=== PATIENT | female | born 1975 | race Caucasian/White ===

== ENCOUNTER 2021-04-20 09:48 | Day surgery (SDC) | payer OTHER ==
[2021-04-20] MEDS ORDERED: BUPIVACAINE 0.5% VIAL IJ ONE (09:49)
[2021-04-20] MEDS ORDERED: Depo-Medrol 40 MG/ML IM ONE (09:49)
[2021-04-20] MEDS ORDERED: DIPRIVAN 200 MG/20 ML IV ONE (11:17)
[2021-04-20] MEDS ORDERED: Lactated Ringers 1,000 ML IV ONE (13:13)
--- NOTE | 2021-04-20 13:21 | XRAY ---
Indication: Right hip and greater trochanter bursa injections. Intraoperative fluoroscopy provided for 19 seconds. 2 digital spot image submitted for interpretation demonstrates needle tip projecting lateral to the right femur neck. Second needle tip lateral to the greater trochanter. Small amount of contrast injected for both needle tip placement. Correlate with intraoperative findings/report.
--- NOTE | 2021-04-20 13:46 | XRAY ---
19 seconds fluoroscopy time in surgery for injections of the greater trochanter and intra-articular joint space of the right hip.
== END 2021-04-20 11:45 | disposition home or self-care (01) ==
LOC: SDC-PAIN 09:48
PROVIDERS: ATTEND Psychiatry & Neurology Pain Medicine
DX: M16.11 Unilateral primary osteoarthritis, right hip (principal); M79.18 Myalgia, other site; Z79.899 Other long term (current) drug therapy
CPT/HCPCS: 20610; 73502; 77002; J1030; J2704; Q9966

== ENCOUNTER 2021-12-21 11:02 | Day surgery (SDC) | payer OTHER ==
[2021-12-21] MEDS ORDERED: Marcaine Mpf 0.5% Vial 30 Ml IJ ONE (11:03)
[2021-12-21] MEDS ORDERED: Depo-Medrol 40 MG/ML IM ONE (11:03)
[2021-12-21] MEDS ORDERED: Lactated Ringers 1,000 ML IV ONE (12:29)
[2021-12-21] MEDS ORDERED: DIPRIVAN 200 MG/20 ML IV ONE (13:14)
--- NOTE | 2021-12-21 19:20 | XRAY ---
Indication: Bilateral SI joint injection. Intraoperative fluoroscopy provided for 25 seconds. 4 digital spot image submitted for interpretation demonstrates posterior needle tip projecting over the left and right SI joint. Correlate with intraoperative findings/report.
--- NOTE | 2021-12-21 19:34 | XRAY ---
25 seconds of fluoroscopy was used in surgery for a bilateral sacroiliac joint injection.
== END 2021-12-21 13:38 | disposition home or self-care (01) ==
LOC: SDC-PAIN 11:02
PROVIDERS: ATTEND Psychiatry & Neurology Pain Medicine
DX: M46.1 Sacroiliitis, not elsewhere classified (principal); Z79.899 Other long term (current) drug therapy
CPT/HCPCS: 01992; 27096; 72202; 77002; G0260; J1030; J2704

== ENCOUNTER 2023-01-24 12:13 | Day surgery (SDC) | payer OTHER ==
[2023-01-24] MEDS ORDERED: BUPIVACAINE 0.5% VIAL IJ ONE (12:14)
[2023-01-24] MEDS ORDERED: LIDOCAINE HCL 1% 50 MG/5 ML VL PF IV ONE (12:14)
[2023-01-24] MEDS ORDERED: Depo-Medrol 40 MG/ML IM ONE (12:14)
[2023-01-24] MEDS ORDERED: Lactated Ringers 1,000 ML IV ONE (14:13)
[2023-01-24] MEDS ORDERED: Versed 2 MG/2 ML Injection ONE (14:33)
[2023-01-24] MEDS ORDERED: DIPRIVAN 200 MG/20 ML IV ONE (14:33)
--- NOTE | 2023-01-24 15:17 | XRAY ---
Indication: Right L4-S1 RFA. Intraoperative fluoroscopy provided for 17 seconds. 3 digital spot images submitted for interpretation demonstrates posterior needle tips projecting over the expected right L4-S1 nerve roots. Correlate with intraoperative findings/report.
--- NOTE | 2023-01-24 16:47 | XRAY ---
17 seconds of fluoroscopy was used in surgery for a right L4-S1 RFA.
== END 2023-01-24 15:06 | disposition home or self-care (01) ==
LOC: SDC-PAIN 12:13
PROVIDERS: ATTEND Psychiatry & Neurology Pain Medicine
DX: M47.816 Spondylosis without myelopathy or radiculopathy, lumbar region (principal); Z79.899 Other long term (current) drug therapy
CPT/HCPCS: 64635; 64636; 72100; 77002; J1030; J2001; J2250; J2704

== ENCOUNTER → 2023-03-14 | Day surgery (SDC) | payer OTHER ==
[~2023-03-14] MED LIST: BUPIVACAINE 0.5% VIAL IJ ONE; DIPRIVAN 200 MG/20 ML IV ONE; Depo-Medrol 40 MG/ML IM ONE; Lactated Ringers 1,000 ML IV ONE; XYLOCAINE-MPF 1% 5ML SDV IJ ONE; Xylocaine-Mpf 2% 5 Ml Vial ONE
--- NOTE | 2023-03-14 12:13 | XRAY ---
Indication: Left L4-S1 RFA. Intraoperative fluoroscopy provided for 37 seconds. 7 digital spot image submitted for interpretation demonstrates posterior needle tips projecting over expected left L4-S1 nerve roots. Correlate with intraoperative findings/report.
--- NOTE | 2023-03-14 12:21 | XRAY ---
37 seconds of fluoroscopy was used in surgery for a left L4-S1 RFA.
== END ==
LOC: SDC-PAIN 10:08
PROVIDERS: ATTEND Psychiatry & Neurology Pain Medicine
DX: M47.817 Spondylosis without myelopathy or radiculopathy, lumbosacral region (principal); Z79.899 Other long term (current) drug therapy
CPT/HCPCS: 64635; 64636; 72100; 77002; J1030; J2704

== ENCOUNTER 2023-04-18 10:45 | Day surgery (SDC) | payer OTHER ==
[2023-04-18] MEDS ORDERED: Depo-Medrol 40 MG/ML IM ONE (10:46)
[2023-04-18] MEDS ORDERED: BUPIVACAINE 0.5% VIAL IJ ONE (10:46)
[2023-04-18] MEDS ORDERED: DIPRIVAN 200 MG/20 ML IV ONE (14:12)
[2023-04-18] MEDS ORDERED: Lactated Ringers 1,000 ML IV ONE (14:24)
--- NOTE | 2023-04-18 15:01 | XRAY ---
Indication: Right hip and greater trochanter bursa injection. Intraoperative fluoroscopy provided for 20 seconds. 3 digital spot image submitted for interpretation demonstrates needle tip projecting lateral to right femur neck. Second needle tip lateral to greater trochanter. Small amount of contrast injected for both needle tip placement.. Correlate with intraoperative findings/report.
--- NOTE | 2023-04-18 15:07 | XRAY ---
20 seconds of fluoroscopy was used in surgery for a right intra-articular hip and greater trochanteric bursa injection.
== END 2023-04-18 14:45 | disposition home or self-care (01) ==
LOC: SDC-PAIN 10:45
PROVIDERS: ATTEND Psychiatry & Neurology Pain Medicine
DX: M16.11 Unilateral primary osteoarthritis, right hip (principal); M70.61 Trochanteric bursitis, right hip
CPT/HCPCS: 20610; 73502; 77002; J1030; J2704; Q9966

== ENCOUNTER 2023-08-08 11:32 | Day surgery (SDC) | payer OTHER ==
[2023-08-08] MEDS ORDERED: Sodium Chloride 0.9(Preservative Free) 10 ML IJ ONE (11:33)
[2023-08-08] MEDS ORDERED: Decadron 4 MG INJ IV ONE (11:33)
[2023-08-08] MEDS ORDERED: DIPRIVAN 200 MG/20 ML IV ONE (13:03)
[2023-08-08] MEDS ORDERED: Lactated Ringers 1,000 ML IV ONE (13:14)
[2023-08-08] MEDS ORDERED: MORPHINE SULFATE 2 MG INJ ONE ×2 (13:23→13:54)
--- NOTE | 2023-08-08 15:05 | XRAY ---
Indication: Right L4-S1 transforaminal RONNIE. Intraoperative fluoroscopy provided for 23 seconds. 5 digital spot image submitted for interpretation demonstrates posterior needle tips projecting over the expected right L4 and L5 nerve roots. Small amount of contrast injected for needle tip placement. Correlate with intraoperative findings/report.
--- NOTE | 2023-08-08 17:10 | XRAY ---
23 seconds of fluoroscopy was used in surgery for a right L4-S1 transforaminal RONNIE.
== END 2023-08-08 13:10 | disposition home or self-care (01) ==
LOC: SDC-PAIN 11:32
PROVIDERS: ATTEND Psychiatry & Neurology Pain Medicine
DX: M54.16 Radiculopathy, lumbar region (principal)
CPT/HCPCS: 64483; 64484; 72100; 77003; J1100; J2270; J2704; Q9966

== ENCOUNTER 2024-06-05 06:58 | Day surgery (SDC) | payer OTHER ==
[2024-06-05] MEDS ORDERED: LIDOCAINE HCL 1% 50 MG/5 ML VL IJ ONE (06:59)
[2024-06-05] MEDS ORDERED: BUPIVACAINE 0.5% VIAL IJ ONE (06:59)
[2024-06-05] MEDS ORDERED: LIDOCAINE HCL 2% 100 MG/5 ML IJ ONE (06:59)
[2024-06-05] MEDS ORDERED: methylPREDNISolone acetate IM ONE (06:59)
[2024-06-05] MEDS ORDERED: Lactated Ringers 500 ML IV ONE (07:11)
[2024-06-05] MEDS ORDERED: propofoL IV ONE (07:58)
--- NOTE | 2024-06-05 11:51 | XRAY ---
Indication: Right L4-S1 RFA. Intraoperative fluoroscopy provided for 19 seconds. 4 digital spot images submitted for interpretation demonstrates posterior needle tips projecting over expected right L4-S1 nerve roots. Correlate with intraoperative findings/report.
--- NOTE | 2024-06-05 12:45 | XRAY ---
19 seconds of fluoroscopy was used in surgery for a right L4-S1 RFA.
== END 2024-06-05 08:55 | disposition home or self-care (01) ==
LOC: SDC-PAIN 06:58
PROVIDERS: ATTEND Psychiatry & Neurology Pain Medicine
DX: M47.816 Spondylosis without myelopathy or radiculopathy, lumbar region (principal)
CPT/HCPCS: 64635; 64636; 72100; 77002; J1010; J2704

== ENCOUNTER 2024-07-30 10:24 | Day surgery (SDC) | payer OTHER ==
[2024-07-30] MEDS ORDERED: methylPREDNISolone acetate IM ONE (10:25)
[2024-07-30] MEDS ORDERED: LIDOCAINE HCL 1% 50 MG/5 ML VL IJ ONE (10:25)
[2024-07-30] MEDS ORDERED: BUPIVACAINE 0.5% VIAL IJ ONE (10:25)
[2024-07-30] MEDS ORDERED: propofoL IV ONE (13:20)
[2024-07-30] MEDS ORDERED: Lactated Ringers 1,000 ML IV ONE (14:36)
--- NOTE | 2024-07-30 16:33 | XRAY ---
Indication: Left L4-S1 RFA. Intraoperative fluoroscopy provided for 10 seconds. 4 digital spot image submitted for interpretation demonstrates posterior needle tips projecting over expected left L4-S1 nerve roots. Correlate with intraoperative findings/report.
--- NOTE | 2024-07-30 16:41 | XRAY ---
10 seconds of fluoroscopy was used in surgery for a left L4-S1 RFA.
== END 2024-07-30 14:05 | disposition home or self-care (01) ==
LOC: SDC-PAIN 10:24
PROVIDERS: ATTEND Psychiatry & Neurology Pain Medicine
DX: M47.817 Spondylosis without myelopathy or radiculopathy, lumbosacral region (principal)
CPT/HCPCS: 64635; 64636; 72100; J1010; J2704